=== PATIENT | male | born 1950 | race Caucasian/White ===

== ENCOUNTER 2016-09-27 05:30 | Observation (INO) | payer MEDICARE ==
[~2016-09-27] VITALS: Ht 177.8 cm; Wt 95.5 kg
[2016-09-27 06:31] LABS: BASOPHILS 0.5 % (0.0-2.0); EOSINOPHILS 2.4 % (0-7); HEMATOCRIT 45.4 % (42.0-54.0); HEMOGLOBIN 15.2 g/dL (13.5-17.5); IMMATURE GRANULOCYTES 0.8 % (0-5); LYMPHOCYTES 17.8 % (15-50); MCH 30.6 pg (26.0-34.0); MCHC 33.5 g/dL (31.0-37.0); MCV 91.3 fL (80.0-100.0); MEAN PLATELET VOLUME 10.8 fL (7.4-10.4); NEUTROPHILS 70.5 % (40-80); PLATELET COUNT 195 10x3/uL (130-400); RBC 4.97 10x6/uL (4.20-6.10); RDW 13.2 % (11.5-14.5); WBC 7.5 10x3/uL (4.8-10.8)
[2016-09-27 06:32] LABS: ALBUMIN 3.1 g/dL (3.4-5.0); ALKALINE PHOSPHATASE 82 U/L (46-116); ALT (SGPT) 24 U/L (10-68); BILIRUBIN - TOTAL 0.78 mg/dL (0.2-1.3); CALC OSMOLALITY 286 mosm/kg (275-300); CALCIUM 8.8 mg/dL (8.5-10.1); CARBON DIOXIDE 26.8 mmol/L (21.0-32.0); CHLORIDE - SERUM 106 mmol/L (98-107); GLUCOSE 109 mg/dL (74-106); POTASSIUM - SERUM 3.8 mmol/L (3.5-5.1); PROTEIN - SERUM 6.9 g/dL (6.4-8.2); SODIUM 143 mmol/L (136-145); UREA NITROGEN 15 mg/dL (7-18); eGFR NON AFRICAN AMERICAN 79 mL/min (90-120)
[2016-09-27 06:35] LABS: UDS - AMPHET NEGATIVE QUAL (NEGATIVE); UDS - BARB NEGATIVE QUAL (NEGATIVE); UDS - BENZO NEGATIVE QUAL (NEGATIVE); UDS - COCAINE NEGATIVE QUAL (NEGATIVE); UDS - METH NEGATIVE QUAL (NEGATIVE); UDS - OPIATE NEGATIVE QUAL (NEGATIVE); UDS - PCP NEGATIVE QUAL (NEGATIVE); UDS - THC NEGATIVE QUAL (NEGATIVE)
[2016-09-27 06:39] LABS: APPEARANCE CLEAR (CLEAR); BILIRUBIN NEGATIVE (NEGATIVE); COLOR YELLOW (YELLOW); GLUCOSE 50 mg/dL (NEGATIVE); KETONE NEGATIVE (NEGATIVE); LEUKOCYTE ESTERASE NEGATIVE (NEGATIVE); NITRITE NEGATIVE (NEGATIVE); PROTEIN 1+ mg/dL (NEGATIVE); SPECIFIC GRAVITY 1.015 (1.005-1.020); UROBILINOGEN NORMAL (NORMAL)
[2016-09-27 06:40] LABS: BACTERIA FEW /hpf (NONE SEEN); EPITHELIAL CELLS RARE /hpf (0-5); RED CELLS - URINE 0-5 /hpf (0-5); WHITE CELLS - URINE OCC /hpf (0-5)
[2016-09-27 06:45] LABS: AMYLASE - SERUM 97 U/L (25-115); CREATINE KINASE 211 UL (21-232); LIPASE 925 U/L (73-393); PRO BNP 366 pg/mL (0-125)
[2016-09-27 06:46] LABS: C-REACTIVE PROTEIN 0.2 mg/dL (0.0-0.9)
[2016-09-27 06:48] LABS: TROPONIN-I 0.102 ng/mL (0.000-0.060)
--- NOTE | 2016-09-27 10:26 | NUR ---
RECIEVED PT TO THE FLOOR FROM ER. REPORT RECIEVED FROM SUDHA VASQUEZ. PT ORIENTED TO ROOM. BED IN LOW POSITION AND CALL LIGHT WITHIN REACH. WILL CONTINUE TO MONITOR.
[2016-09-27] MEDS ORDERED: ZYLOPRIM300 MG PO (11:10)
[2016-09-27] MEDS ORDERED: ASPIRIN81 MG PO (11:10)
[2016-09-27] MEDS ORDERED: GLIMEPIRIDE4 MG PO (11:12)
[2016-09-27] MEDS ORDERED: GLUCOPHAGE500 MG PO (11:12)
[2016-09-27] MEDS ORDERED: TENORMIN50 MG PO (11:12)
[2016-09-27] MEDS ORDERED: ZOVIRAX400 MG PO (11:13)
[2016-09-27] MEDS ORDERED: NIASPAN500 MG PO (11:13)
[2016-09-27] MEDS ORDERED: TIROSINT50 MCG PO (11:14)
[2016-09-27] MEDS ORDERED: AMBIEN10 MG PO (11:14)
[2016-09-27] MEDS ORDERED: PRAVACHOL40 MG PO (11:14)
[2016-09-27] MEDS ORDERED: LISINOPRIL10 MG PO (11:15)
--- NOTE | 2016-09-27 11:30 | NUR ---
SPOKE WITH ABOUT PT HISTORY. DOCTOR WILL SEE PT TODAY.
[2016-09-27] MEDS ORDERED: LANTUS SOL100 UNIT/1 SC (15:36)
--- NOTE | 2016-09-27 19:35 | NUR ---
PATIENT SITTING AT THE SIDE OF THE BED WITH AT BEDSIDE. PATIENT DENIES NEEDS AT THIS TIME. PATIENT'S BED IN LOWEST POSITION AND CALL LIGHT WITHIN REACH.
[2016-09-27 19:50] VITALS: Ht 177.8 cm; Wt 95.5 kg
[2016-09-28] VITALS: BP 132/59
[2016-09-28 04:00] VITALS: BP 133/58
[2016-09-28 05:08] LABS: BASOPHILS 0.2 % (0.0-2.0); EOSINOPHILS 0.7 % (0-7); HEMATOCRIT 44.6 % (42.0-54.0); HEMOGLOBIN 14.8 g/dL (13.5-17.5); IMMATURE GRANULOCYTES 0.2 % (0-5); LYMPHOCYTES 9.9 % (15-50); MCH 30.5 pg (26.0-34.0); MCHC 33.2 g/dL (31.0-37.0); MCV 91.8 fL (80.0-100.0); MEAN PLATELET VOLUME 10.6 fL (7.4-10.4); MONOCYTES 9.1 % (2-11); NEUTROPHILS 79.9 % (40-80); PLATELET COUNT 196 10x3/uL (130-400); RBC 4.86 10x6/uL (4.20-6.10); RDW 13.6 % (11.5-14.5)
[2016-09-28 05:15] LABS: WBC 10.7 10x3/uL (4.8-10.8)
[2016-09-28 05:27] LABS: ALBUMIN 2.9 g/dL (3.4-5.0); ALKALINE PHOSPHATASE 76 U/L (46-116); ALT (SGPT) 27 U/L (10-68); CALCIUM 8.5 mg/dL (8.5-10.1); CARBON DIOXIDE 30.9 mmol/L (21.0-32.0); CHLORIDE - SERUM 106 mmol/L (98-107); CHOL - HDL RATIO 4.2 ratio (2.3-4.9); CHOLESTEROL, TOTAL 158 mg/dL (0-200); CREATININE - SERUM 0.9 mg/dL (0.6-1.3); GLUCOSE 72 mg/dL (74-106); HDL CHOLESTEROL 38 mg/dL (32-96); LDL CHOLESTEROL 97 mg/dL (0-100); LDL-HDL RATIO 2.6 ratio (1.5-3.5); LIPASE 184 U/L (73-393); POTASSIUM - SERUM 3.6 mmol/L (3.5-5.1); PROTEIN - SERUM 6.4 g/dL (6.4-8.2); SODIUM 142 mmol/L (136-145); TRIGLYCERIDE 117 mg/dL (30-200); eGFR NON AFRICAN AMERICAN 89 mL/min (90-120)
[2016-09-28 05:28] LABS: AMYLASE - SERUM 52 U/L (25-115); CALC OSMOLALITY 280 mosm/kg (275-300); UREA NITROGEN 11 mg/dL (7-18)
--- NOTE | 2016-09-28 07:24 | NUR ---
PATIENT SITTING UP IN CHAIR ALERT. NO SIGNS OF DISTRESS NOTED. CALL LIGHT IN REACH.
--- NOTE | 2016-09-28 07:30 | NUR ---
RECIEVED PT DURING WALKING ROUNDS. PT RESTING COMFORTABLY IN BED WITH NO COMPLAINTS OF PAIN OR DISCOMFORT AT THIS TIME. ASSESSMENT DONE PER FLOWSHEET. BED IN LOW POSITION AND CALL LIGHT WITHIN REACH. WILL CONTINUE TO MONITOR.
[2016-09-28 08:28] VITALS: BP 153/66
[2016-09-28 11:10] LABS: FOLATE (FOLIC ACID) - SERUM 14.2 ng/mL (>3.0)
--- NOTE | 2016-09-28 11:30 | NUR ---
PT STATES HE DOES NOT TAKE SHORT ACTING INSULIN AT HOME AND DOES NOT WANT IT WHILE HE IS HERE. WILL CONTINUE TO MONITOR.
--- NOTE | 2016-09-28 12:59 | NUR ---
SPOKE WITH REGINE FUNES APN FOR [facility]. EEG HAS BEEN DONE AND ORDERS RECIEVED FOR PT DISCHARGE. WILL DISCHARGE PT WHEN APPROPRIATE PAPERWORK IS COMPLETED.
--- NOTE | 2016-09-28 14:26 | NUR ---
IV REMOVED CATH INTACT. DISCHARGE INSTRUCTIONS GIVEN AND PT DISCHARGED TO HOME WITH A FAMILY MEMBER.
--- NOTE | 2016-10-01 08:45 | EEG ---
PATIENT:VIDHYA THRASHER DATE OF SERVICE: 09/27/16 MEDICAL RECORD: [id number] DATE OF : 46 LOCATION:D.221 D.MS ADMISSION DATE: 09/27/16 REFERRING PHYSICIAN: INTERPRETING PHYSICIAN: EFFIE STOUT MD DATE OF SERVICE: 09/29/2016 Referred by myself as an inpatient in room 2213. ELECTROENCEPHALOGRAM NUMBER: [id number]. DATE OF EXAMINATION: 09/28/2016 at 11:40 a.m. TECHNICAL DATA: This electroencephalographic recording consists of approximately 20 minutes of data collection utilizing the international 10/20 system of electrode placement and both referential and non-referential montages. Sixteen channels of electrocerebral recording are accompanied by a 17th channel dedicated to the electrocardiographic rhythm and 2 channels of electromyographic recording. Recording is performed in the awake and sleep states utilizing activation by hyperventilation and photic stimulation. ELECTROENCEPHALOGRAPHIC DATA: The awake state comprises approximately 40% of the recorded electrocerebral activity. Electromyographic artifact is prominent and rapid eye movements are seen. The posterior dominant background consists of a well-developed, symmetric, rhythmic, waxing and waning alpha activity of 9-10 Hz, which is suppressed by eye opening. The drowsy state comprises approximately 40% of the recorded electrocerebral activity. Electromyographic artifact is diminished and rapid eye movements are not seen. The posterior dominant background is relatively suppressed. Also seen is an intermittent irregular generalized and symmetric 2-3 Hz delta slowing, which occurs for periods of 1-2 seconds approximately once every 1-2 pages. The transition to stage II sleep, which comprises the remaining portion of the recorded electrocerebral activity is heralded by the appearance of typical 15 Hz sleep spindles. No abnormal nor focal slowing is identified. No epileptiform discharges are seen. Hyperventilation and photic stimulation induced no abnormal change in the recorded electrocerebral activity. INTERPRETATION: Normal (awake and asleep). This is a normal electroencephalographic recording. TRANSINT:[id number] Voice Confirmation ID: [id number] DOCUMENT ID: [id number] ELECTROENCEPHALOGRAM REPORT [id number] VIDHYA THRASHER EFFIE STOUT MD at 0845 CC: [id number] DICTATION DATE: 09/29/16 0608 [employer] CERTIFIED NETWORK ASSOCIATE: 09/29/16 0810 DIS IN 09/28/16 [facility] [address] [place] [address]
== END 2016-09-28 14:27 | disposition home or self-care (01) ==
LOC: D.ER 05:30 → D.MS 09:36 → OBSVTIME 09:36 → D.MS 09:36
PROVIDERS: Family Medicine; ADMIT Family Medicine
DX: G40.409 Other generalized epilepsy and epileptic syndromes, not intractable, without status epilepticus (principal); I10 Essential (primary) hypertension; I25.10 Atherosclerotic heart disease of native coronary artery without angina pectoris; E11.9 Type 2 diabetes mellitus without complications; Z79.4 Long term (current) use of insulin; Z95.0 Presence of cardiac pacemaker